=== PATIENT | female | born 1980 | race Caucasian/White ===

== ENCOUNTER 2017-09-06 10:46 | Emergency (ER) | payer OTHER ==
[2017-09-06 11:06] VITALS: BMI 21.4
--- NOTE | 2017-09-06 12:16 | C.PDOC ---
History Of Present Illness 36 y/o female presents to the ER complaining of fever, chills, runny nose, sore throat, body aches, and nausea which have been present for the past 3 days.Patient denies having vomiting, diarrhea, and abdominal pain.Patient does not have any other complaints. Time Seen by Provider: 09/06/17 11:35 Chief Complaint (Nursing): Flu-like Symptoms History Per: Patient History/Exam Limitations: no limitations Onset/Duration Of Symptoms: Days Current Symptoms Are (Timing): Still Present Associated Symptoms: Fever, Chills, Nausea. denies: Vomiting, Diarrhea Severity: Moderate Past Medical History Reviewed: Historical Data, Nursing Documentation, Vital Signs Vital Signs: Last Vital Signs Temp 99.2 F 09/06/17 12:27 Pulse 96 H 09/06/17 12:27 Resp 18 09/06/17 12:27 BP 121/73 09/06/17 12:27 Pulse Ox 100 09/06/17 15:01 - Medical History PMH: No Chronic Diseases Surgical History: No Surg Hx Family History: States: No Known Family Hx - Social History Hx Alcohol Use: No Hx Substance Use: No - Immunization History Hx Tetanus Toxoid Vaccination: Yes Hx Influenza Vaccination: No Hx Pneumococcal Vaccination: No Review Of Systems Constitutional: Positive for: Fever, Chills, Malaise ENT: Positive for: Nose Discharge, Throat Pain Gastrointestinal: Positive for: Nausea. Negative for: Vomiting, Abdominal Pain , Diarrhea Physical Exam - Physical Exam Appears: Non-toxic, No Acute Distress, Other (coughing, mildly uncomfortable) Skin: Normal Color, Warm Head: Atraumatic, Normacephalic Eye(s): bilateral: Normal Inspection, PERRL Ear(s): Bilateral: Normal Nose: Discharge (rhinorrhea) Throat: Erythema (mild pharyngeal erythema), No Exudate Neck: Supple Chest: Symmetrical Cardiovascular: Rhythm Regular Respiratory: Normal Breath Sounds, No Accessory Muscle Use, No Rales, No Rhonchi , No Wheezing Extremity: Normal ROM Neurological/Psych: Oriented x3, Normal Speech, Normal Cognition, Normal Motor, Normal Sensation ED Course And Treatment O2 Sat by Pulse Oximetry: 100 (RA) Pulse Ox Interpretation: Normal Progress Note: Patient given Sudafed and Tylenol. Patient discharged with prescriptions for Zofran and Tylenol and told to follow up with PCP In 1-2 days. Disposition Counseled Patient/Family Regarding: Diagnosis, Need For Followup, Rx Given - Disposition Referrals: [facility] [Outside] Disposition: HOME/ ROUTINE Disposition Time: 12:30 Condition: STABLE Additional Instructions: FOLLOW UP WITH YOUR DOCTOR/CLINIC IN 1-2 DAYS DRINK PLENTY OF FLUIDS & GET REST USE MEDICATIONS NEEDED RETURN TO ER IF SYMPTOMS WORSEN Prescriptions: Benzonatate [Tessalon Perles] 100 mg PO BID PRN #15 sgl PRN Reason: Cough Naproxen 375 mg PO BID PRN #20 tablet PRN Reason: pain Ondansetron [Zofran Odt] 4 mg PO Q8 PRN #10 odt PRN Reason: Nausea/Vomiting Pseudoephedrine [Sudafed] 60 mg PO Q6 PRN #12 tab PRN Reason: Nasal Congestion Instructions: Viral Syndrome (ED) Forms: [employer] (Divehi) Print Language: HONDURAN - Clinical Impression Clinical Impression: Influenza-like illness, Viral syndrome - Scribe Statement The provider has reviewed the documentation as recorded by the Jay Mulligan Provider Attestation: All medical record entries made by the Rosaibnicol were at my direction and personally dictated by me. I have reviewed the chart and agree that the record accurately reflects my personal performance of the history, physical exam, medical decision making, and the department course for this patient. I have also personally directed, reviewed, and agree with the discharge instructions and disposition.
[2017-09-06 12:28] VITALS: BP 121/73; PULSE 96; RESP 18; TEMP 99.2
[2017-09-06 14:55] VITALS: O2SAT 100
== END 2017-09-06 12:30 | disposition home or self-care (01) ==
LOC: C.ER 10:46
DX: J11.1 Influenza due to unidentified influenza virus with other respiratory manifestations (principal)